=== PATIENT | male | born 1955 | race Caucasian/White ===

== ENCOUNTER 2016-06-12 13:53 | Emergency (ER) | payer OTHER ==
[~2016-06-12] VITALS: Ht 172.7 cm; Wt 101.2 kg
[~2016-06-12 13:53] MED LIST: CEPH500C2 PO; HYDR-4246 PO; LOSA1TAB96 PO
[2016-06-12 13:58] VITALS: Ht 172.7 cm; Wt 101.2 kg
--- OUTSIDE RECORDS SUMMARY | 2016-06-12 13:58 | XMS REPORT | Continuity of Care Document ---
Author Author [facility] Organization [facility] Address Unknown Phone Unavailable Care Team Providers Care Entry Level Machine Operator Name Role Phone JAMEY CHUA MD Primary Care Physician [phone] Insurance Providers Payer Name Policy Number Subscriber Name Relationship [facility] [id number] Jesus Julien 20 Self Problems Medical Problems Problem Onset Date Status Rotator cuff syndrome of left shoulder Unknown Active Rotator cuff syndrome of left shoulder Unknown Active Medications Medication Dose Route Sig Days/Qty Instructions Order Date Discontinued Date Status [Bp Pill] 08/29/08 11/04/08 Discontinued Losartan/Hydrochlorothiazide 1 Tab PO DAILY 10/03/13 Active Hydrocodone/Acetaminophen 1 Tab PO Every 6 Hours PRN PAIN 10/03/13 Active Cyclobenzaprine HCl 1 Tab PO THREE TIMES A DAY 10/03/13 Active Social History Social History Problem Response Recorded Date/Time Smoking Status Never smoker 10/03/2013 1:27pm Hx Substance Use No 10/03/2013 1:27pm Hx Alcohol Use Y OCCASIONAL 10/03/2013 1:27pm Hospital Discharge Instructions No hospital discharge instructions. Plan of Care No plan of care. Functional Status Query Response Date Recorded Physical Hygiene Self October 03, 2013 1:27pm Disabilities Visual October 03, 2013 1:27pm Devices Used Glasses October 03, 2013 1:27pm Dressing Self October 03, 2013 1:27pm Ambulation Self October 03, 2013 1:27pm Diet Self October 03, 2013 1:27pm Mental Status Alert Oriented October 03, 2013 1:27pm Disabilities Visual October 03, 2013 1:27pm Devices Used Glasses October 03, 2013 1:27pm Physical Hygiene Self October 03, 2013 1:27pm Dressing Self October 03, 2013 1:27pm Ambulation Self October 03, 2013 1:27pm Diet Self October 03, 2013 1:27pm Allergies, Adverse Reactions, Alerts Allergen Type Severity Reaction Status Last Updated No Known Drug Allergies Allergy Unknown Active 10/03/13 Immunizations Name Given Type Hx Influenza Vaccination Y 2013 Historical Hx Pneumococcal Vaccination Y 2006 Historical Hx Tetanus, Diptheria, Pertussis Y 06/28/11 Historical Hx Influenza Vaccination Y 2012 Historical Hx Tetanus Diptheria Y 3 YRS Historical Hx Tetanus, Diptheria, Pertussis Y 06/28/11 Historical Vital Signs Acute Vital Signs Vital Response Date/Time Temperature (Fahrenheit) 97.6 deg F (96.8 - 99.1) Temperature (Calculated Celsius) 36.24482 degrees C (36.0 - 37.3) Pulse Rate (adult) 115 bpm (60 - 100) Respiratory Rate 20 breaths/min (10 - 20) O2 Sat by Pulse Oximetry 96 % (90 - 100) Blood Pressure 106/69 mm Hg Height 5 ft 7 in Weight 225 lb Body Mass Index 35.0 kg/m^2 Results Test Source Date Result Interp. Ref. Range Comments Alanine Aminotransferase (ALT/SGPT) July 20, 2007 1:04pm 108 U/L H 21- 72 Albumin July 20, 2007 1:04pm 3.9 G/DL N 3.5-5.0 Albumin/Globulin Ratio July 20, 2007 1:04pm 1.0 RATIO L 1.1-2.2 Alkaline Phosphatase July 20, 2007 1:04pm 91 U/L N 38-126 Anion Gap July 20, 2007 1:04pm 14.1 MEQ/L N 5-15 Anti-Streptolysin O Antibody Screen July 20, 2007 1:04pm Negative - Aspartate Amino Transf (AST/SGOT) July 20, 2007 1:04pm 185 U/L H 14-59 BUN/Creatinine Ratio July 20, 2007 1:04pm 16 RATIO N 6-26 Band Neutrophils # July 20, 2007 1:04pm 2.3 T/MM3 - COMMENT LAB Band Neutrophils % July 20, 2007 1:04pm 13.0 % H 0-6 COMMENT [facility] Basophils # (Auto) July 20, 2007 1:04pm Not Performed 0-0.2 Basophils # (Manual) July 20, 2007 1:04pm 0.0 T/MM3 N 0-0.2 COMMENT [facility] Basophils % (Manual) July 20, 2007 1:04pm 0.0 % N 0-2 COMMENT [facility] Basophils (%) (Auto) July 20, 2007 1:04pm Not Performed 0-2 Blood Urea Nitrogen July 20, 2007 1:04pm 16 MG/DL N 9-20 C-Reactive Protein July 20, 2007 1:04pm 235.3 MG/L H 3-10 Calcium Level July 20, 2007 1:04pm 8.4 MG/DL N 8.4-10.2 Calculated Osmolality July 20, 2007 1:04pm 254 MOSM/KG L 273-286 Carbon Dioxide Level July 20, 2007 1:04pm 27 MEQ/L N 22-30 Chloride Level July 20, 2007 1:04pm 88 MEQ/L L 98-107 Creatinine July 20, 2007 1:04pm 1.0 MG/DL N 0.8-1.5 D-Dimer July 20, 2007 1:04pm > [id number] NG/ML H 68-494 <500 NG/ML FIBRIN DEGRADATION EQUIVALENTS=PRESUMPTIVE NEGATIVE FOR PE OR DVT >500 NG/ML FIBRIN DEGRADATION EQUIVALENTS =ADDITIONAL EVALUATION FOR PE OR DVT RECOMMENDED VALUES ARE DECREASED SHARPLY BY ANTICOAGULANT THERAPY Eosinophils # (Auto) July 20, 2007 1:04pm Not Performed 0-0.5 Eosinophils # (Manual) July 20, 2007 1:04pm 0.0 T/MM3 N 0-0.5 COMMENT LAB Eosinophils % (Manual) July 20, 2007 1:04pm 0.0 % N 0-4 COMMENT LAB Eosinophils (%) (Auto) July 20, 2007 1:04pm Not Performed 0-4 Erythrocyte Sedimentation Rate July 20, 2007 1:04pm 11 MM/HR - Globulin July 20, 2007 1:04pm 3.7 G/DL H 2-3.6 Glucose Level July 20, 2007 1:04pm 158 MG/DL H 74-106 Group A Streptococcus Screen July 20, 2007 12:45pm Negative - Strep culture confirmation to follow Hematocrit July 20, 2007 1:04pm 45.7 % N 41-53 COMMENT LAB Hemoglobin July 20, 2007 1:04pm 16.9 GM/DL N 13.5-17.5 COMMENT LAB Lymphocytes # (Auto) July 20, 2007 1:04pm Not Performed 1-4.8 Lymphocytes # (Manual) July 20, 2007 1:04pm 0.2 T/MM3 L 1-4.8 COMMENT LAB Lymphocytes % (Manual) July 20, 2007 1:04pm 1.0 % L 23-45 COMMENT LAB Lymphocytes (%) (Auto) July 20, 2007 1:04pm Not Performed 23-45 Mean Corpuscular Hemoglobin July 20, 2007 1:04pm 29.2 UUG N 26-34 COMMENT LAB Mean Corpuscular Hemoglobin Concent July 20, 2007 1:04pm 37.0 GM/DL N 31 -37 COMMENT LAB Mean Corpuscular Volume July 20, 2007 1:04pm 79.1 UM3 L 80-100 COMMENT LAB Mean Platelet Volume July 20, 2007 1:04pm 11.5 UM3 H 7.4-10.4 COMMENT LAB Monocytes # (Auto) July 20, 2007 1:04pm Not Performed 0-0.8 Monocytes # (Manual) July 20, 2007 1:04pm 0.7 T/MM3 N 0-0.8 COMMENT LAB Monocytes % (Manual) July 20, 2007 1:04pm 4.0 % N 0-9.0 COMMENT LAB Monocytes (%) (Auto) July 20, 2007 1:04pm Not Performed 0-9.0 Neutrophils # (Auto) July 20, 2007 1:04pm Not Performed 1.8-7.7 Neutrophils # (Manual) July 20, 2007 1:04pm 14.8 T/MM3 H 1.8-7.7 COMMENT LAB Neutrophils % (Manual) July 20, 2007 1:04pm 82.0 % H 33-66 COMMENT LAB Neutrophils (%) (Auto) July 20, 2007 1:04pm Not Performed 33-66 Platelet Count July 20, 2007 1:04pm 85 T/MM3 L 130-400 COMMENT LAB Potassium Level July 20, 2007 1:04pm 3.0 MEQ/L L 3.6-5 RDW Standard Deviation July 20, 2007 1:04pm 36.7 FL L 36.9-50.2 COMMENT LAB Rapid Plasma Reagin July 20, 2007 1:04pm Nonreactive - Red Blood Count July 20, 2007 1:04pm 5.78 M/MM3 N 4.50-5.90 COMMENT LAB Sodium Level July 20, 2007 1:04pm 129 MEQ/L L 134-144 Total Bilirubin July 20, 2007 1:04pm 1.0 MG/DL N 0.2-1.3 Total Protein July 20, 2007 1:04pm 7.6 G/DL N 6.3-8.2 Troponin I July 20, 2007 1:04pm 0.068 ng/ml N 0-0.12 Urine Bacteria July 20, 2007 1:52pm 1+ - Has specimen been collected/ obtained? Y Urine Bilirubin July 20, 2007 1:52pm Negative - Has specimen been collected/obtained? Y Urine Blood July 20, 2007 1:52pm 4+ - Has specimen been collected/ obtained? Y Urine Collection Type July 20, 2007 1:52pm Voided - Has specimen been collected/obtained? Y Urine Color July 20, 2007 1:52pm Yellow - Has specimen been collected /obtained? Y Urine Glucose (UA) July 20, 2007 1:52pm Negative - Has specimen been collected/obtained? Y Urine Ketones July 20, 2007 1:52pm Negative - Has specimen been collected/obtained? Y Urine Leukocyte Esterase July 20, 2007 1:52pm Negative - Has specimen been collected/obtained? Y Urine Nitrite July 20, 2007 1:52pm Negative - Has specimen been collected/obtained? Y Urine Protein July 20, 2007 1:52pm 1+ - Has specimen been collected/ obtained? Y Urine RBC July 20, 2007 1:52pm 3-5 /HPF - Has specimen been collected /obtained? Y Urine Specific [place] July 20, 2007 1:52pm 1.010 - Has specimen been collected/obtained? Y Urine Squamous Epithelial Cells July 20, 2007 1:52pm Few - Has specimen been collected/obtained? Y Urine Turbidity July 20, 2007 1:52pm Clear - Has specimen been collected/obtained? Y Urine Urobilinogen July 20, 2007 1:52pm 1 EU/DL - Has specimen been collected/obtained? Y Urine WBC July 20, 2007 1:52pm 3-5 /HPF - Has specimen been collected /obtained? Y Urine pH July 20, 2007 1:52pm 9.0 - Has specimen been collected/ obtained? Y White Blood Count July 20, 2007 1:04pm 18.0 T/MM3 H 4.5-11.0 COMMENT LAB [place] Antibody July 20, 2007 8:00am Send out - EKG July 20, 2007 12:45pm Complete - Rickettsia species Antibody July 20, 2007 12:45pm Send out - HIV (1&2) Antibody Rapid July 20, 2007 1:04pm Negative - Blood Culture Blood July 20, 2007 1:05pm NO GROWTH AFTER 5 DAYS Group A Streptococcus Culture Throat July 20, 2007 1:16pm Procedures No known history of procedures. Encounters Encounter Location Date/Time Registered Emergency Room [facility] 10/03/13 1:00pm Recent Diagnosis
--- OUTSIDE RECORDS SUMMARY | 2016-06-12 13:58 | XMS REPORT | Continuity of Care Document ---
Author Author Mallorie Paredes RN Ambulatory Address [address] [place] [address] Phone Unavailable Care Team Providers Care Rn Hedis Name Role Phone Bernardo Peres PP Unavailable Payers Payer name Insurance type Covered democrat ID Authorization(s) Unknown Problems Condition Effective Dates (start - stop) Clinical Status Rotator cuff (capsule) sprain - *Acute Rotator cuff strain - *Acute Rotator cuff (capsule) sprain and strain - *Acute Hypertension, Unspecified - *Chronic Hypertension, Unspecified - Chronic Hypertension, Unspecified - *Chronic Other and unspecified hyperlipidemia - *Chronic Obesity - *Chronic Family history of coronary artery disease - *Chronic Medication side effect - *Symptomatic Obesity - Improved Hypertension, Unspecified - *Chronic Other and unspecified hyperlipidemia - *Chronic Cellulitis, finger - *Acute Constipation, unspecified - Chronic Hemorrhoids - Chronic Hypertension, Unspecified - *Chronic Erectile Dysfunction - *Chronic Atypical nevi - *Worse Other and unspecified hyperlipidemia - *Chronic Benign neoplasm of skin, site unspecified - Asymptomatic Family History Family Member Diagnosis Age At Onset Status Mother (Unknown) Diabetes Yes Father (Unknown) Hypertension Yes Mother (Unknown) Congestive heart failure Yes Father (Unknown) Hyperlipidemia Yes Maternal grandmother (Unknown) Cancer - colon Yes Mother (Unknown) CAD Yes Mother (Unknown) Obesity Yes Mother (Unknown) Hypertension Yes Mother (Unknown) Hyperlipidemia Yes Social History Social History Element Description Quantity alcohol Allergies, Adverse Reactions, Alerts Substance Reaction Severity Status LISINOPRIL cough mild to moderate CAFFEINE Unknown ASPIRIN Unknown Medications Medication Instructions Dosage Effective Dates (start - stop) Status losartan 100 mg-hydrochlorothiazide 25 mg tablet take 1 tablet by oral route every day 0 - Active Immunizations Vaccine Date Status Comments Flu (split) (3 yrs or older) completed flu (split) (3 yrs or older) completed - Completed reason: previously given Tdap (Boostrix ) completed - Completed reason: previously given pneumo (2 yrs or older) (PPV23) completed - Completed reason: previously given Results Test Name Date and Time Measure Units Reference Range Abnormal Flag Comments Unknown Vital Signs Date / Time: Height Weight Pulse Rate Blood Pressure Temperature /13:12:00 67.00 in 232.00 lbs 92 /min 144/96 mm[Hg] 98.2 F Procedures Procedure Date Unknown Encounters Encounter Location Date Patient Visit [facility] Patient Visit [facility] Patient Visit [facility] Patient Visit [facility] Patient Visit [facility] Patient Visit [facility] Patient Visit [facility] Patient Visit [facility] Patient Visit [facility] Advance Directives Directive Effective Date Unknown
--- OUTSIDE RECORDS SUMMARY | 2016-06-12 13:58 | XMS REPORT | Referral Summary ---
Author Author [facility] Organization [facility] Address Unknown Phone Unavailable Care Team Providers Care Lining Feller Blindstitch Name Role Phone Claude Hudson Primary Care Physician [phone] Encounter VC Date(s): 08/08/14 - 08/08/14 [facility], [address] [place] [id number]- Discharge Disposition: 01-Home or Self Care Attending Physician: Benjamin Li MD Admitting Physician: Benjamin Li MD Vital Signs Most recent to 1 oldest [Reference Range]: Blood Pressure 110/80 mmHg [90-140/60-90 mmHg] (08/08/14 3:12 PM) Problem List Condition Effective Dates Status Health Status Informant Constipation Active (disorder)(Confirmed ) Essential Active hypertension (disorder)(Confirmed ) Hemorrhoids without Active complication (disorder)(Confirmed ) hypertension(Confirm Resolved ed) Impotence of organic Active origin (disorder)(Confirmed ) Obesity(Confirmed) Active patient Rotator cuff Active tendinitis(Confirmed ) Snoring(Confirmed) Active tonsillectomy(Confir Resolved med) Allergies, Adverse Reactions, Alerts Substance Reaction Severity Status lisinopril cough Moderate Active Medications Aleve 220 mg, Oral, as needed for arthritis, 0 Refill(s) Start Date: 08/08/14 Status: Ordered losartan-hydrochlorothiazide 100 mg-25 mg oral tablet 1 tabs, Oral, Daily, X 90 days, # 90 tabs, 3 Refill(s), Pharmacy: [facility] #[id number] Start Date: 11/08/14 Stop Date: 11/03/15 Status: Ordered Results Hematology Most recent to 1 oldest [Reference Range]: WBC [4.8-10.8 8.2 10*3/uL 10*3/uL] (08/08/14 4:03 PM) RBC [4.60-6.20 4.92 10*6/uL 10*6/uL] (08/08/14 4:03 PM) Hgb [14.0-18.0 14.2 gm/dL gm/dL] (08/08/14 4:03 PM) Hct [42.0-52.0 %] 41.8 % *LOW* (08/08/14 4:03 PM) MCV [82.0-99.0 fL] 85.0 fL (08/08/14 4:03 PM) MCH [27.0-32.0 pg] 28.9 pg (08/08/14 4:03 PM) MCHC [32.0-36.0 34.0 gm/dL gm/dL] (08/08/14 4:03 PM) RDW [11.5-14.5 %] 14.1 % (08/08/14 4:03 PM) Platelet [150-400 338 10*3/uL 10*3/uL] (08/08/14 4:03 PM) MPV [8.8-14.8 fL] 10.7 fL (08/08/14 4:03 PM) Neutrophils [51-75 70 % %] (08/08/14 4:03 PM) Lymphocytes [20-46 19 % %] *LOW* (08/08/14 4:03 PM) Monocytes [4-11 %] 10 % (08/08/14 4:03 PM) Eosinophils [0-4 %] 1 % (08/08/14 4:03 PM) Basophils [0-2 %] 0 % (08/08/14 4:03 PM) Neutro Absolute 5.70 10*3 [1.90-7.00 10*3] (08/08/14 4:03 PM) Lymph Absolute 1.52 10*3 [0.80-3.30 10*3] (08/08/14 4:03 PM) [place] Absolute 0.84 10*3 [0.30-1.00 10*3] (08/08/14 4:03 PM) Eos Absolute 0.10 10*3 [0.00-0.50 10*3] (08/08/14 4:03 PM) Baso Absolute 0.03 10*3 [0.00-0.20 10*3] (08/08/14 4:03 PM) Chemistry Most recent to 1 oldest [Reference Range]: Sodium Lvl [135-144 137 mEq/L mEq/L] (08/08/14 4:03 PM) Potassium Lvl 3.8 mEq/L [3.5-5.2 mEq/L] (08/08/14 4:03 PM) Chloride [99-111 105 mEq/L mEq/L] (08/08/14 4:03 PM) CO2 [23-31 mEq/L] 24 mEq/L (08/08/14 4:03 PM) AGAP [3-20] 8 (08/08/14 4:03 PM) BUN [8-26 mg/dL] 18 mg/dL (08/08/14 4:03 PM) Glucose Lvl [70-99 94 mg/dL mg/dL] (08/08/14 4:03 PM) Creatinine Lvl 0.75 mg/dL [0.72-1.25 mg/dL] (08/08/14 4:03 PM) eGFR [>60 mL/min] >60 mL/min 1 (08/08/14 4:03 PM) Calcium Lvl 9.6 mg/dL [8.9-10.5 mg/dL] (08/08/14 4:03 PM) Albumin Lvl [3.5-5.0 4.0 gm/dL gm/dL] (08/08/14 4:03 PM) Total Protein 6.7 gm/dL [6.4-8.3 gm/dL] (08/08/14 4:03 PM) Globulin [1.8-4.0 2.7 gm/dL gm/dL] (08/08/14 4:03 PM) ALT [0-55 U/L] 30 U/L (08/08/14 4:03 PM) AST [5-34 U/L] 22 U/L (08/08/14 4:03 PM) Alk Phos [40-150 85 U/L U/L] (08/08/14 4:03 PM) Bili Total [0.2-1.2 0.4 mg/dL mg/dL] (08/08/14 4:03 PM) PSA (wihout Reflex 0.6 ng/mL 2 Free) [0.0-3.5 (08/08/14 4:03 PM) ng/mL] Chol [0-199 mg/dL] 191 mg/dL (08/08/14 4:03 PM) Trig [0-149 mg/dL] 90 mg/dL (08/08/14 4:03 PM) HDL [40-84 mg/dL] 51 mg/dL (08/08/14 4:03 PM) LDL [0-130 mg/dL] 122 mg/dL (08/08/14 4:03 PM) VLDL Cholesterol 18 mg/dL [0-28 mg/dL] (08/08/14 4:03 PM) Cardiac Risk 3.7 [0.0-5.7] (08/08/14 4:03 PM) 1Result Comment: Multiply eGFR results by 1.21 for race. 2Result Comment: AUA PSA Best Practice Guidelines: Age-Adjusted PSA Values by Ethnic Group Age Range Asians - Caucasians Americans 40-49 0-2.0 0-2.0 0-2.5 50-59 0-3.0 0-4.0 0-3.5 60-69 0-4.0 0-4.5 0-4.5 70-79 0-5.0 0-5.5 0-6.5 Urinalysis Most recent to 1 oldest [Reference Range]: UA Color Yellow (08/08/14 4:15 PM) UA Appear Clear (08/08/14 4:15 PM) UA pH [5.0-8.0] 6.0 (08/08/14 4:15 PM) UA Leuk Est Negative [Negative] (08/08/14 4:15 PM) UA Nitrite Negative [Negative] (08/08/14 4:15 PM) UA Protein Negative [Negative] (08/08/14 4:15 PM) UA Glucose Negative [Negative] (08/08/14 4:15 PM) UA Ketones Negative [Negative] (08/08/14 4:15 PM) UA Urobilinogen 1.0 mg/dL [<1.0 mg/dL] (08/08/14 4:15 PM) UA Bili [Negative] Negative (08/08/14 4:15 PM) UA Blood [Negative] Negative (08/08/14 4:15 PM) UA Spec Grav 1.025 [1.003-1.030] (08/08/14 4:15 PM) Type Voided (08/08/14 4:15 PM) Immunizations Vaccine Date Refusal Reason influenza virus vaccine, live 12/07/12 influenza virus vaccine, live 12/05/10 pneumococcal 23-polyvalent vaccine 07/11/10 zoster vaccine live 11/10/12 Procedures Procedure Date Related Diagnosis Body Site Collection of venous blood by venipuncture 08/08/14 Social History Social History Type Response Smoking Status Never smoker Assessment and Plan Extracted from: Title: Ambulatory Patient Education Author: Benjamin Li MD Date: Family Medicine Arterial Hypertension Arterial hypertension (high blood pressure ) is a condition of elevated pressure in your blood vessels. Hypertension over a long period of time is a risk factor for strokes, heart attacks, and heart failure. It is also the leading cause of kidney (renal ) failure. CAUSES In Adults -- Over 90% of all hypertension has no known cause. This is called essential or primary hypertension. In the other 10% of people with hypertension, the increase in blood pressure is caused by another disorder. This is called secondary hypertension . Important causes of secondary hypertension are: Heavy alcohol use. Obstructive sleep apnea. Hyperaldosterosim (Conn's syndrome). Steroid use. Chronic kidney failure. Hyperparathyroidism. Medications. Renal artery stenosis. Pheochromocytoma. Pepper's disease. Coarctation of the aorta. Scleroderma renal crisis. Licorice (in excessive amounts). Drugs (cocaine, methamphetamine). Your caregiver can explain any items above that apply to you. In Children -- Secondary hypertension is more common and should always be considered. -- Few women of childbearing age have high blood pressure. However, up to 10% of them develop hypertension of . Generally, this will not harm the woman. It may be a sign of 3 complications of : preeclampsia, HELLP syndrome, and eclampsia. Follow up and control with medication is necessary. SYMPTOMS This condition normally does not produce any noticeable symptoms. It is usually found during a routine exam. Malignant hypertension is a late problem of high blood pressure. It may have the following symptoms: Headaches. Blurred vision. End-organ damage (this means your kidneys, heart, lungs, and other organs are being damaged). Stressful situations can increase the blood pressure. If a person with normal blood pressure has their blood pressure go up while being seen by their caregiver, this is often termed "white coat hypertension." Its importance is not known. It may be related with eventually developing hypertension or complications of hypertension. Hypertension is often confused with mental tension, stress, and anxiety. DIAGNOSIS The diagnosis is made by 3 separate blood pressure measurements. They are taken at least 1 week apart from each other. If there is organ damage from hypertension, the diagnosis may be made without repeat measurements. Hypertension is usually identified by having blood pressure readings: Above 140/90 mmHg measured in both arms, at 3 separate times, over a couple weeks. Over 130/80 mmHg should be considered a risk factor and may require treatment in patients with diabetes. Blood pressure readings over 120/80 mmHg are called "pre-hypertension" even in non-diabetic patients. To get a true blood pressure measurement, use the following guidelines. Be aware of the factors that can alter blood pressure readings. Take measurements at least 1 hour after caffeine. Take measurements 30 minutes after smoking and without any stress. This is another reason to quit smoking it raises your blood pressure. Use a proper cuff size. Ask your caregiver if you are not sure about your cuff size. Most home blood pressure cuffs are automatic. They will measure systolic and diastolic pressures. The systolic pressure is the pressure reading at the start of sounds. Diastolic pressure is the pressure at which the sounds disappear. If you are elderly, measure pressures in multiple postures. Try sitting, lying or standing. Sit at rest for a minimum of 5 minutes before taking measurements. You should not be on any medications like decongestants. These are found in many cold medications. Record your blood pressure readings and review them with your caregiver. If you have hypertension: Your caregiver may do tests to be sure you do not have secondary hypertension (see "causes" above). Your caregiver may also look for signs of metabolic syndrome. This is also called Syndrome X or Insulin Resistance Syndrome. You may have this syndrome if you have type 2 diabetes, abdominal obesity, and abnormal blood lipids in addition to hypertension. Your caregiver will take your medical and family history and perform a physical exam. Diagnostic tests may include blood tests (for glucose, cholesterol, potassium, and kidney function), a urinalysis, or an EKG. Other tests may also be necessary depending on your condition. PREVENTION There are important lifestyle issues that you can adopt to reduce your chance of developing hypertension: Maintain a normal weight. Limit the amount of salt (sodium ) in your diet. Exercise often. Limit alcohol intake. Get enough potassium in your diet. Discuss specific advice with your caregiver. Follow a DASH diet (dietary approaches to stop hypertension). This diet is rich in fruits, vegetables, and low-fat dairy products, and avoids certain fats. PROGNOSIS Essential hypertension cannot be cured. Lifestyle changes and medical treatment can lower blood pressure and reduce complications. The prognosis of secondary hypertension depends on the underlying cause. Many people whose hypertension is controlled with medicine or lifestyle changes can live a normal, healthy life. RISKS AND COMPLICATIONS While high blood pressure alone is not an illness, it often requires treatment due to its short- and long-term effects on many organs. Hypertension increases your risk for: CVAs or strokes (cerebrovascular accident ). Heart failure due to chronically high blood pressure (hypertensive cardiomyopathy ). Heart attack (myocardial infarction ). Damage to the retina (hypertensive retinopathy ). Kidney failure (hypertensive nephropathy ). Your caregiver can explain list items above that apply to you. Treatment of hypertension can significantly reduce the risk of complications. TREATMENT For overweight patients, weight loss and regular exercise are recommended. Physical fitness lowers blood pressure. Mild hypertension is usually treated with diet and exercise. A diet rich in fruits and vegetables, fat-free dairy products, and foods low in fat and salt (sodium ) can help lower blood pressure. Decreasing salt intake decreases blood pressure in a 1/3 of people. Stop smoking if you are a smoker. The steps above are highly effective in reducing blood pressure. While these actions are easy to suggest, they are difficult to achieve. Most patients with moderate or severe hypertension end up requiring medications to bring their blood pressure down to a normal level. There are several classes of medications for treatment. Blood pressure pills (antihypertensives ) will lower blood pressure by their different actions. Lowering the blood pressure by 10 mmHg may decrease the risk of complications by as much as 25%. The goal of treatment is effective blood pressure control. This will reduce your risk for complications. Your caregiver will help you determine the best treatment for you according to your lifestyle. What is excellent treatment for one person, may not be for you. HOME CARE INSTRUCTIONS Do not smoke. Follow the lifestyle changes outlined in the "Prevention" section. If you are on medications, follow the directions carefully. Blood pressure medications must be taken as prescribed. Skipping doses reduces their benefit. It also puts you at risk for problems. Follow up with your caregiver, as directed. If you are asked to monitor your blood pressure at home, follow the guidelines in the "Diagnosis" section above. SEEK MEDICAL CARE IF: You think you are having medication side effects. You have recurrent headaches or lightheadedness. You have swelling in your ankles. You have trouble with your vision. SEEK IMMEDIATE MEDICAL CARE IF: You have sudden onset of chest pain or pressure, difficulty breathing, or other symptoms of a heart attack. You have a severe headache. You have symptoms of a stroke (such as sudden weakness, difficulty speaking , difficulty walking). MAKE SURE YOU: Understand these instructions. Will watch your condition. Will get help right away if you are not doing well or get worse. Document Released: 01/27/2006 Document Revised: 04/20/2012 Document Reviewed: [facility] Patient Information 2014 [employer]. No follow up information was provided. Extracted from: Title: Office Visit Note Author: Benjamin Li MD Date: 08/08/14 Assessment/Plan Essential hypertension (disorder) This issue is stable and appropriate refills , lab, and f/u have been discussed. Hyperlipidemia This issue is stable and appropriate refills, lab, and f/u have been discussed. Lab pending.PSA pending. Impotence of organic origin (disorder) This issue is stable and appropriate refills, lab, and f/u have been discussed. Obesity Diet and exercise. Snoring Consider sleep apnea work up when willing.
--- OUTSIDE RECORDS SUMMARY | 2016-06-12 13:58 | XMS REPORT | Referral Summary ---
Author Author [facility] Organization [facility] Address Unknown Phone Unavailable Care Team Providers Care Inventory Specialist Manager Name Role Phone Claude Hudson Primary Care Physician [phone] Encounter VC Date(s): 11/08/14 - 11/08/14 [facility], [address] [place] [address]- Discharge Disposition: 01-Home or Self Care Attending Physician: Arsen Hudson MD Admitting Physician: Arsen Hudson MD Vital Signs Most recent to 1 oldest [Reference Range]: Peripheral Pulse 104 bpm Rate [60-100 bpm] *HI* (11/08/14 3:20 PM) Blood Pressure 124/72 mmHg [90-140/60-90 mmHg] (11/08/14 3:20 PM) Problem List Condition Effective Dates Status Health Status Informant Constipation Active (disorder)(Confirmed ) Essential Active hypertension (disorder)(Confirmed ) Fatigue(Confirmed) Active Hemorrhoids without Active complication (disorder)(Confirmed ) hypertension(Confirm [...] days, # 90 tabs, 3 Refill(s), Pharmacy: [facility] #[id number] Start Date: 11/08/14 Stop Date: 11/03/15 Status: Ordered Results No data available for this section Immunizations Vaccine Date Refusal Reason influenza virus vaccine, live 12/07/12 influenza virus vaccine, live 12/05/10 pneumococcal 23-polyvalent vaccine 07/11/10 zoster vaccine live 11/10/12 Procedures No data available for this section Social History Social History Type Response Smoking Status Never smoker Assessment and Plan Extracted from: Title: Ambulatory Patient Education Author: Arsen Hudson MD Date: Family Medicine DASH Eating Plan DASH stands for "Dietary Approaches to Stop Hypertension." The DASH eating plan is a healthy eating plan that has been shown to reduce high blood pressure ( hypertension). Additional health benefits may include reducing the risk of type 2 diabetes mellitus, heart disease, and stroke. The DASH eating plan may also help with weight loss. WHAT DO I NEED TO KNOW ABOUT THE DASH EATING PLAN? For the DASH eating plan, you will follow these general guidelines: Choose foods with a percent daily value for sodium of less than 5% (as listed on the food label). Use salt-free seasonings or herbs instead of table salt or sea salt. Check with your health care provider or pharmacist before using salt substitutes. Eat lower-sodium products, often labeled as "lower sodium" or "no salt added." Eat fresh foods. Eat more vegetables, fruits, and low-fat dairy products. Choose whole grains. Look for the word "whole" as the first word in the ingredient list. Choose fish and skinless chicken or turkey more often than red meat. Limit fish, poultry, and meat to 6 oz (170 g) each day. Limit sweets, desserts, sugars, and sugary drinks. Choose heart-healthy fats. Limit cheese to 1 oz (28 g) per day. Eat more home-cooked food and less restaurant, buffet, and fast food. Limit fried foods. Cook foods using methods other than frying. Limit canned vegetables. If you do use them, rinse them well to decrease the sodium. When eating at a restaurant, ask that your food be prepared with less salt , or no salt if possible. WHAT FOODS CAN I EAT? Seek help from a dietitian for individual calorie needs. Grains Whole grain or whole wheat bread. Brown rice. Whole grain or whole wheat pasta. Quinoa, bulgur, and whole grain cereals. Low-sodium cereals. [place] or whole wheat flour tortillas. Whole grain cornbread. Whole grain crackers. Low-sodium crackers. Vegetables Fresh or frozen vegetables (raw, steamed, roasted, or grilled). Low-sodium or reduced-sodium tomato and vegetable juices. Low-sodium or reduced-sodium tomato sauce and paste. Low-sodium or reduced-sodium canned vegetables. Fruits All fresh, canned (in natural juice), or frozen fruits. Meat and Other Protein Products Ground beef (85% or leaner), grass-fed beef, or beef trimmed of fat. Skinless chicken or turkey. Ground chicken or turkey. Pork trimmed of fat. All fish and seafood. Eggs. Dried beans, peas, or lentils. Unsalted nuts and seeds. Unsalted canned beans. Dairy Low-fat dairy products, such as skim or 1% milk, 2% or reduced-fat cheeses, low- fat ricotta or cottage cheese, or plain low-fat yogurt. Low-sodium or reduced- sodium cheeses. Fats and Oils Tub margarines without trans fats. Light or reduced-fat mayonnaise and salad dressings (reduced sodium). Avocado. Safflower, olive, or canola oils. Natural peanut or almond butter. Other Unsalted popcorn and pretzels. The items listed above may not be a complete list of recommended foods or beverages. Contact your dietitian for more options. WHAT FOODS ARE NOT RECOMMENDED? Grains White bread. White pasta. White rice. Refined cornbread. Bagels and croissants. Crackers that contain trans fat. Vegetables Creamed or fried vegetables. Vegetables in a cheese sauce. Regular canned vegetables. Regular canned tomato sauce and paste. Regular tomato and vegetable juices. Fruits Dried fruits. Canned fruit in light or heavy syrup. Fruit juice. Meat and Other Protein Products Fatty cuts of meat. Ribs, chicken wings, acosta, sausage, bologna, salami, chitterlings, fatback, hot dogs, bratwurst, and packaged luncheon meats. Salted nuts and seeds. Canned beans with salt. Dairy Whole or 2% milk, cream, [id number], and cream cheese. Whole-fat or sweetened yogurt. Full-fat cheeses or blue cheese. Nondairy creamers and whipped toppings. Processed cheese, cheese spreads, or cheese curds. Condiments Onion and garlic salt, seasoned salt, table salt, and sea salt. Canned and packaged gravies. Worcestershire sauce. Tartar sauce. Barbecue sauce. Teriyaki sauce. Soy sauce, including reduced sodium. Steak sauce. Fish sauce. Oyster sauce. Cocktail sauce. Horseradish. Ketchup and mustard. Meat flavorings and tenderizers. Bouillon cubes. Hot sauce. Tabasco sauce. Marinades. Taco seasonings. Relishes. Fats and Oils Butter, stick margarine, lard, shortening, ghee, and acosta fat. Coconut, palm kernel, or palm oils. Regular salad dressings. Other Pickles and olives. Salted popcorn and pretzels. The items listed above may not be a complete list of foods and beverages to avoid. Contact your dietitian for more information. WHERE CAN I FIND MORE INFORMATION? National Heart, Lung, and Blood [place]: www.nhlbi.nih.gov/health/health- topics/topics/dash/ Document Released: 01/16/2012 Document Revised: 06/13/2014 Document Reviewed: ExitCare Patient Information 2015 [employer]. This information is not intended to replace advice given to you by your health care provider. Make sure you discuss any questions you have with your health care provider. Hypertension Hypertension, commonly called high blood pressure, is when the force of blood pumping through your arteries is too strong. Your arteries are the blood vessels that carry blood from your heart throughout your body. A blood pressure reading consists of a higher number over a lower number, such as 110/72. The higher number (systolic) is the pressure inside your arteries when your heart pumps. The lower number (diastolic) is the pressure inside your arteries when your heart relaxes. Ideally you want your blood pressure below 120/80. Hypertension forces your heart to work harder to pump blood. Your arteries may become narrow or stiff. Having hypertension puts you at risk for heart disease, stroke, and other problems. RISK FACTORS Some risk factors for high blood pressure are controllable. Others are not. Risk factors you cannot control include: Race. You may be at higher risk if you are . Age. Risk increases with age. Gender. Men are at higher risk than women before age 45 years. After age 65 , women are at higher risk than men. Risk factors you can control include: Not getting enough exercise or physical activity. Being overweight. Getting too much fat, sugar, calories, or salt in your diet. Drinking too much alcohol. SIGNS AND SYMPTOMS Hypertension does not usually cause signs or symptoms. Extremely high blood pressure (hypertensive crisis) may cause headache, anxiety, shortness of breath , and nosebleed. DIAGNOSIS To check if you have hypertension, your health care provider will measure your blood pressure while you are seated, with your arm held at the level of your heart. It should be measured at least twice using the same arm. Certain conditions can cause a difference in blood pressure between your right and left arms. A blood pressure reading that is higher than normal on one occasion does not mean that you need treatment. If one blood pressure reading is high, ask your health care provider about having it checked again. TREATMENT Treating high blood pressure includes making lifestyle changes and possibly taking medicine. Living a healthy lifestyle can help lower high blood pressure. You may need to change some of your habits. Lifestyle changes may include: Following the DASH diet. This diet is high in fruits, vegetables, and whole grains. It is low in salt, red meat, and added sugars. Getting at least 2 hours of brisk physical activity every week. Losing weight if necessary. Not smoking. Limiting alcoholic beverages. Learning ways to reduce stress. If lifestyle changes are not enough to get your blood pressure under control, your health care provider may prescribe medicine. You may need to take more than one. Work closely with your health care provider to understand the risks and benefits. HOME CARE INSTRUCTIONS Have your blood pressure rechecked as directed by your health care provider. Take medicines only as directed by your health care provider. Follow the directions carefully. Blood pressure medicines must be taken as prescribed. The medicine does not work as well when you skip doses. Skipping doses also puts you at risk for problems. Do not smoke. Monitor your blood pressure at home as directed by your health care provider. SEEK MEDICAL CARE IF: You think you are having a reaction to medicines taken. You have recurrent headaches or feel dizzy. You have swelling in your ankles. You have trouble with your vision. SEEK IMMEDIATE MEDICAL CARE IF: You develop a severe headache or confusion. You have unusual weakness, numbness, or feel faint. You have severe chest or abdominal pain. You vomit repeatedly. You have trouble breathing. MAKE SURE YOU: Understand these instructions. Will watch your condition. Will get help right away if you are not doing well or get worse. Document Released: 01/27/2006 Document Revised: 06/13/2014 Document Reviewed: ExitCare Patient Information 2015 [place], [facility]. This information is not intended to replace advice given to you by your health care provider. Make sure you discuss any questions you have with your health care provider. No follow up information was provided. Extracted from: Title: Office Visit Note Author: Arsen Hudson MD Date: 11/08/14 Assessment/Plan Essential hypertension (disorder) Continue with the current medications. Ordered: Office Visit Level 4 Est 80513 Snoring Will set patient up for a sleep study Ordered: Office Visit Level 4 Est 46827 Orders: losartan-hydrochlorothiazide, 1 tabs, Oral, Daily, X 90 days, # 90 tabs, 3 Refill(s), Pharmacy: [facility] #[id number]
--- OUTSIDE RECORDS SUMMARY | 2016-06-12 13:58 | XMS REPORT | Continuity of Care Document ---
Author Author Ja BENAVIDES, Bernardo HORAN Ambulatory Address [address] [place] [address] Nela Rodrigues [facility] [place] [address] Phone Care Team Providers Care Metallurgical Engineering Technician Name Role Phone Bernardo Peres PP Unavailable Payers Payer name Insurance type Covered constitution party ID Authorization(s) Unknown Problems Condition Effective Dates (start - stop) Clinical Status Cellulitis, finger - *Acute Rotator cuff (capsule) sprain and strain - *Acute Hypertension, Unspecified - *Chronic Hypertension, Unspecified - Chronic Hypertension, Unspecified - *Chronic Other and unspecified hyperlipidemia - *Chronic Obesity - *Chronic Family history of coronary artery disease - *Chronic Rotator cuff (capsule) sprain - *Acute Rotator cuff strain - *Acute Medication side effect - *Symptomatic Obesity - Improved Hypertension, Unspecified - *Chronic Other and unspecified hyperlipidemia - *Chronic Constipation, unspecified - Chronic Hemorrhoids - Chronic [...] Dosage Effective Dates (start - stop) Status Keflex 500 mg capsule take 1 capsule (500MG) by oral route every 8 hours for 10 days 500 MG - No Longer Active losartan 100 mg-hydrochlorothiazide 25 mg tablet take [...] Height Weight Pulse Rate Blood Pressure Temperature /15:28:00 67.00 in 230.00 lbs 88 /min 110/72 mm[Hg] 98.2 F Procedures Procedure Date Unknown Encounters Encounter Location Date Patient Visit [facility] Patient Visit [facility] Patient Visit [facility] Patient Visit [facility] Patient Visit [facility] Patient Visit [facility] Patient Visit [facility] Patient Visit [facility] Patient Visit [facility] Advance Directives Directive Effective Date Unknown
--- OUTSIDE RECORDS SUMMARY | 2016-06-12 13:59 | XMS REPORT | Referral Summary ---
Author Author [facility] [employer] Organization [facility] [place] Address Unknown Phone Unavailable Care Team Providers Care Buffer Copper Name Role Phone Claude Hudson Primary Care Physician [phone] Encounter VC Date(s): 07/06/15 - 07/06/15 [facility] [place] [address] [place] [address] Discharge Disposition: 01-Home or Self Care Attending Physician: Tavares Fernandes MD Admitting Physician: Tavares Fernandes MD Vital Signs Most recent to 1 oldest [Reference Range]: Peripheral Pulse 87 bpm Rate [60-100 bpm] (07/06/15 4:13 PM) Blood Pressure 144/92 mmHg [90-140/60-90 mmHg] *HI* (07/06/15 4:13 PM) SpO2 94 % (07/06/15 4:13 PM) Problem List Condition Effective Dates Status Health Status Informant Constipation Active (disorder)(Confirmed ) Essential Active hypertension (disorder)(Confirmed ) Fatigue(Confirmed) Active Hemorrhoids without Active complication (disorder)(Confirmed ) Hyperlipidemia(Confi Active rmed) hypertension(Confirm Resolved ed) Impotence of organic Active origin (disorder)(Confirmed ) Obesity(Confirmed) Active patient [place] 07/2007 Active spotted fever(Confirmed) Rotator cuff Active tendinitis(Confirmed ) Snoring(Confirmed) Active tonsillectomy(Confir Resolved med) Chicken Active pox(Confirmed) Allergies, Adverse Reactions, Alerts Substance Reaction Severity Status lisinopril cough Moderate Active Medications Aleve 220 mg, Oral, as needed for arthritis, 0 Refill(s) Start Date: 08/08/14 Status: Ordered losartan-hydrochlorothiazide 100 mg-25 mg oral tablet 1 tabs, Oral, Daily, X 90 days, # 90 tabs, 3 Refill(s), Pharmacy: [facility] #[id number] Start Date: 11/08/14 Stop Date: 11/03/15 Status: Ordered Results No data available for this section Immunizations Vaccine Date Refusal Reason tetanus/diphth/pertuss (Tdap) adult/adol 10/03/08 influenza virus vaccine, live 12/07/12 influenza virus vaccine, live 12/05/10 pneumococcal 23-polyvalent vaccine 07/11/10 pneumococcal 23-polyvalent vaccine 10/03/08 zoster vaccine live 11/10/12 Procedures Procedure Date Related Diagnosis Body Site Colonoscopy1 11/07/08 Tonsillectomy 1with mild sigmoid diverticulosis. Plan repeat colonoscopy in 10 years (2018) Social History Social History Type Response Smoking Status Never smoker Assessment and Plan Extracted from: Title: Patient to Stop and Schedule Author: Hannah Rogers Date: FU after CPAP SETUP Please have patient stop and set up fu visit with Dr Soler after CPAP Set up
--- OUTSIDE RECORDS SUMMARY | 2016-06-12 13:59 | XMS REPORT | Referral Summary ---
Author Author [facility] Organization [facility] Address Unknown Phone Unavailable Care Team Providers Care Genetic Engineer Name Role Phone Claude Hudson Primary Care Physician [phone] Encounter VC Date(s): 11/08/14 - 11/08/14 [facility], [address] [place] [address]- Discharge Disposition: 01-Home or Self Care Attending [...] # 90 tabs, 3 Refill(s), Pharmacy: [facility] #[id number] Start Date: 11/08/14 Stop Date: 11/03/15 Status: [...] bulgur, and whole grain cereals. Low-sodium cereals. [place] or whole wheat flour tortillas. Whole grain [...] salt. Dairy Whole or 2% milk, cream, [id number], and cream cheese. Whole-fat or sweetened yogurt. [...] MORE INFORMATION? National Heart, Lung, and Blood [place]: www.nhlbi.nih.gov/health/health- topics/topics/dash/ Document Released: 01/16/2012 Document Revised: 06/13/2014 Document Reviewed: ExitCare Patient Information 2015 [employer]. This information is not intended to replace [...] Released: 01/27/2006 Document Revised: 06/13/2014 Document Reviewed: [facility] Patient Information 2015 [employer]. This information is not intended to replace advice given to you by your health care provider. Make sure you discuss any questions you have with your health care provider. No follow up information was provided. Extracted from: Title: Office Visit Note Author: Arsen Hudson MD Date: 11/08/14 Assessment/Plan Essential hypertension (disorder) Continue with the current medications. Ordered: Office Visit Level 4 Est 43853 Snoring Will set patient up for a sleep study Ordered: Office Visit Level 4 Est [id number] Orders: losartan-hydrochlorothiazide, 1 tabs, Oral, Daily, X 90 days, # 90 tabs, 3 Refill(s), Pharmacy: [facility] #[id number]
--- OUTSIDE RECORDS SUMMARY | 2016-06-12 13:59 | XMS REPORT | Referral Summary ---
Author Author [facility] [employer] [facility] Organization [facility] [place] Address Unknown Phone Unavailable Care Team Providers Care Control Panel Operator Crude Unit Name Role Phone Claude Hudson Primary Care Physician [phone] Encounter [facility] [id number] Date(s): 05/11/15 - 05/11/15 [facility] [place] [address] [place], [place] [address] Discharge Diagnosis: Essential hypertension Discharge Diagnosis: Fatigue Discharge Diagnosis: Snoring Discharge Disposition: 01-Home or Self Care Attending Physician: Tavares Fernandes MD Admitting Physician: Tavares Fernandes MD Referring Physician: Arsen Hudson MD Vital Signs Most recent to 1 oldest [Reference Range]: Peripheral Pulse 82 bpm Rate [60-100 bpm] (05/11/15 4:05 PM) Blood Pressure 118/74 mmHg [90-140/60-90 mmHg] (05/11/15 4:05 PM) SpO2 96 % (05/11/15 4:05 PM) Problem List Condition Effective Dates Status [...] days, # 90 tabs, 3 Refill(s), Pharmacy: [facility] #[id number] Start Date: 11/08/14 Stop Date: 11/03/15 Status: Ordered Results No data available for this section Immunizations Vaccine Date Refusal Reason influenza virus vaccine, live 12/07/12 influenza virus vaccine, live 12/05/10 pneumococcal 23-polyvalent vaccine 07/11/10 zoster vaccine live 11/10/12 Procedures No data available for this section Social History Social History Type Response Smoking Status Never smoker Assessment and Plan Extracted from: Title: Office Visit Note Author: Tavares Fernandes Date: 05/11/15 Assessment/Plan 1.Snoring 2.Essential hypertension 3.Fatigue Snoring, fatigue, Hx of HTN, witnessed apneas, Suspected Sleep Apnea. Patient has multiple risk factors for obstructive sleep apnea. Pre-test probability for sleep apnea is moderate. He is a good candidate for home sleep apnea testing or split night testing, patient opted for split night testing after hearing pros-cons. The testing process was explained to the patient in detail. Other testing options as well as therapeutic options were briefly discussed. We will see patient6 weeks after test to discuss results and management plan. Patient verbalized understanding and agrees with plan. Patient is advised to avoid driving and other potentially harmful activities if sleepy, drowsy or otherwise impaired. Countermeasures to sleepiness include naps before driving, pulling over to nap if driving and caffeine if patient is not in a potentially harmful setting.
--- OUTSIDE RECORDS SUMMARY | 2016-06-12 13:59 | XMS REPORT | Continuity of Care Document ---
Author Author [facility] Organization [facility] Address Unknown Phone Unavailable Allergies Active Description Code Type Severity Reaction Onset Reported/Identified Relationship to Patient Clinical Status Yes lisinopril NKMA Moderate cough 06/10/2013 Medications Problems Procedures Results Encounters ACCT No. Visit Date/Time Discharge Status Pt. Type Provider Facility Loc./Unit Complaint [id number] 03/22/2013 15:19:00 03/22/2013 23 :59:59 [facility] Outpatient [id number] 03/01/2013 13:08:00 03/01/2013 23 :59:59 CLS Outpatient [id number] 12/07/2012 15:09:00 12/07/2012 23 :59:59 CLS Outpatient
--- OUTSIDE RECORDS SUMMARY | 2016-06-12 13:59 | XMS REPORT | Referral Summary ---
Author Author [facility], [employer] Organization [facility] [place] Address Unknown Phone Unavailable Care Team Providers Care Director Of Litigation Name Role Phone Claude Hudson Primary Care Physician [phone] Encounter VC Date(s): 08/09/15 - 08/09/15 [facility] [place] [address] [place], [place] [address] Discharge Disposition: 01-Home or Self Care Attending Physician: Tavares Fernandes MD Admitting Physician: Tavares Fernandes MD Vital Signs No data available for this section Problem List Condition Effective Dates Status Health Status Informant Constipation Active (disorder)(Confirmed ) Essential Active hypertension (disorder)(Confirmed ) Fatigue(Confirmed) Active Hemorrhoids without Active complication (disorder)(Confirmed ) Hyperlipidemia(Confi Active rmed) hypertension(Confirm Resolved ed) Impotence of organic Active origin (disorder)(Confirmed ) Obesity(Confirmed) Active patient Moderate obstructive Active sleep apnea(Confirmed) [place] 07/2007 Active spotted fever(Confirmed) Rotator cuff Active [...] Refill(s), Pharmacy: [facility] #[id number] Start Date: 11/08/14 Stop Date: 11/03/15 Status: [...] smoker Assessment and Plan Extracted from: Title: CPAP SUPPLIES Author: Natalya Rojas [employer]HW[employer] COMMISSIONER Date: 08/09/15 [employer]:med with headgear / 30 day switch. He will bring the Airfit p10 back tomorrow.
--- OUTSIDE RECORDS SUMMARY | 2016-06-12 13:59 | XMS REPORT | Continuity of Care Document ---
Author Author Jose Martin Anderson MA Ambulatory Address Unknown Phone Unavailable Care Team Providers Care Forensic Examiner Name Role Phone Kwesi Pereshong ROGERS Unavailable Payers Payer name Insurance type Covered libertarian ID Authorization(s) Unknown Problems Condition Effective Dates (start - stop) Clinical Status Medication side effect - *Symptomatic Obesity - Improved Hypertension, Unspecified - *Chronic Other and unspecified hyperlipidemia - *Chronic Rotator cuff (capsule) sprain and strain - *Acute Hypertension, Unspecified - *Chronic Hypertension, Unspecified - Chronic Hypertension, Unspecified - *Chronic Other and unspecified hyperlipidemia - *Chronic Obesity - *Chronic Family history of coronary artery disease - *Chronic Constipation, unspecified - Chronic Hemorrhoids [...] Flu (split) (3 yrs or older) completed Tdap (Boostrix ) completed - Completed reason: previously given flu (split) (3 yrs or older) completed - Completed reason: previously given pneumo (2 yrs or older) (PPV23) completed - Completed reason: previously given Results Test Name Date and Time Measure Units Reference Range Abnormal Flag Comments Unknown Vital Signs Date / Time: Height Weight Pulse Rate Blood Pressure Temperature /15:15:00 67.00 in 221.12 lbs 88 /min 128/74 mm[Hg] 98.1 F Procedures Procedure Date Unknown Encounters Encounter Location Date Patient Visit [facility] Patient [facility] Patient [facility] Patient [facility] Patient [facility] Patient Visit [facility] Advance Directives Directive Effective Date Unknown
--- OUTSIDE RECORDS SUMMARY | 2016-06-12 13:59 | XMS REPORT | Referral Summary ---
Author Author [facility] Organization [facility] Address Unknown Phone Unavailable Care Team Providers Care Elevator Constructor Supervisor Name Role Phone Claude Hudson Primary Care Physician [phone] Encounter VC Date(s): 02/08/16 - 02/08/16 [facility], [address] [place] [address] Discharge Diagnosis: Moderate obstructive sleep apnea Discharge Diagnosis: Essential hypertension Discharge Diagnosis: Hyperlipidemia Discharge Disposition: 01-Home or Self Care Attending Physician: Arsen Hudson MD Admitting Physician: Arsen Hudson MD Vital Signs Most recent to 1 oldest [Reference Range]: Peripheral Pulse 87 bpm Rate [60-100 bpm] (02/08/16 10:37 AM) Blood Pressure 126/84 mmHg [90-140/60-90 mmHg] (02/08/16 10:37 AM) SpO2 93 % (02/08/16 10:37 AM) Problem List Condition Effective Dates Status Health Status Informant Constipation Active (disorder)(Confirmed ) Essential Active hypertension (disorder)(Confirmed ) Fatigue(Confirmed) Active Hemorrhoids without Active complication (disorder)(Confirmed ) Hyperlipidemia(Confi Active rmed) hypertension(Confirm Resolved ed) Impotence of organic Active origin (disorder)(Confirmed ) Obesity(Confirmed) Active patient Moderate obstructive Active sleep apnea(Confirmed) [place] 07/2007 Active spotted fever(Confirmed) Rotator cuff Active tendinitis(Confirmed ) Snoring(Confirmed) Active tonsillectomy(Confir Resolved med) Chicken Active pox(Confirmed) Allergies, Adverse Reactions, Alerts Substance Reaction Severity Status lisinopril cough Moderate Active Medications Aleve 220 mg, Oral, as needed for arthritis, 0 Refill(s) Start Date: 08/08/14 Status: Ordered losartan-hydrochlorothiazide 100 mg-25 mg oral tablet 1 tabs, Oral, Daily, # 90 tabs, 3 Refill(s), [facility] #[id number] Start Date: 02/08/16 Status: Ordered Results No data available for this section Immunizations Given and Recorded Vaccine Date Status Refusal Reason tetanus/diphth/pertuss (Tdap) adult/adol 10/03/08 Recorded influenza virus vaccine, live 12/07/12 Given influenza virus vaccine, live 12/05/10 Given pneumococcal 23-polyvalent vaccine 07/11/10 Recorded pneumococcal 23-polyvalent vaccine 10/03/08 Recorded zoster vaccine live 11/10/12 Recorded Procedures Procedure Date Related Diagnosis Body Site Colonoscopy1 11/07/08 Tonsillectomy 1with mild sigmoid diverticulosis. Plan repeat colonoscopy in 10 years (2018) Social History Social History Type Response Smoking Status Never smoker Assessment and Plan Extracted from: Title: Ambulatory Patient Education Author: Arsen Hudson MD Date: ENT CPAP and BIPAP Information CPAP and BIPAP are methods of helping you breathe with the use of air pressure. CPAP stands for "continuous positive airway pressure." BIPAP stands for "bi- level positive airway pressure." In both methods, air is blown into your air passages to help keep you breathing well. With CPAP, the amount of pressure stays the same while you breathe in and out. CPAP is most commonly used for obstructive sleep apnea. For obstructive sleep apnea, CPAP works by holding your airways open so that they do not collapse when your muscles relax during sleep. BIPAP is similar to CPAP except the amount of pressure is increased when you inhale. This helps you take larger breaths. Your health care provider will recommend whether CPAP or BIPAP would be more helpful for you. WHY ARE CPAP AND BIPAP TREATMENTS USED? CPAP or BIPAP can be helpful if you have: Sleep apnea. Chronic obstructive pulmonary disease (COPD). Diseases that weaken the muscles of the chest, including muscular dystrophy or neurological diseases such as amyotrophic lateral sclerosis (ALS). Other problems that cause breathing to be weak, abnormal, or difficult. HOW IS CPAP OR BIPAP ADMINISTERED? Both CPAP and BIPAP are provided by a small machine with a flexible plastic tube that attaches to a plastic mask. The mask fits on your face, and air is blown into your air passages through your nose or mouth. The amount of pressure that is used to blow the air into your air passages can be set on the machine. Your health care provider will determine the pressure setting that should be used based on your individual needs. WHEN SHOULD CPAP OR BIPAP BE USED? In most cases, the mask is worn only when sleeping. Generally, you will need to wear the mask throughout the night and during the daytime if you take a nap. In a few cases involving certain medical conditions, people also need to wear the mask at other times when they are awake. Follow your health care provider's instructions for when to use the machine. USING THE MASK Because the mask needs to be snug, some people feel a trapped or closed- in feeling (claustrophobic) when first using the mask. You may need to get used to the mask gradually. To do this, you can first hold the mask loosely over your nose or mouth. Gradually apply the mask more snugly. You can also gradually increase the amount of time that you use the mask. Masks are available in various types and sizes. Some fit over your mouth and nose, and some fit over just your nose. If your mask does not fit well, talk to your health care provider about getting a different one. If you are using a nasal mask and you tend to breathe through your mouth , a chin strap may be applied to help keep your mouth closed. The CPAP and BIPAP machines have alarms that may sound if the mask comes off or develops a leak. If you have trouble with the mask, it is very important that you talk to your health care provider about finding a way to make the mask easier to tolerate. Do not stop using the mask. This could have a negative impact on your health. TIPS FOR USING THE MACHINE Place your CPAP or BIPAP machine on a secure table or stand near an electrical outlet. Know where the on-off switch is located on the machine. Follow your health care provider's instructions for how to set the pressure on your machine and when you should use it. Do not eat or drink while the CPAP or BIPAP machine is on. Food or fluids could get pushed into your lungs by the pressure of the CPAP or BIPAP. Do not smoke. Tobacco smoke residue can damage the machine. For home use, CPAP and BIPAP machines can be rented or purchased through home health care companies. Many different brands of machines are available. Renting a machine before purchasing may help you find out which particular machine works well for you. SEEK IMMEDIATE MEDICAL CARE IF: You have redness or open areas around your nose or mouth where the mask fits. You have trouble operating the CPAP or BIPAP machine. You cannot tolerate wearing the CPAP or BIPAP mask. This information is not intended to replace advice given to you by your health care provider. Make sure you discuss any questions you have with your health care provider. Document Released: 10/25/2004 Document Revised: 02/17/2015 Document Reviewed: [employer] Interactive Patient Education 2016 [employer]. Preventive Medicine Managing Your High Blood Pressure Blood pressure is a measurement of how forceful your blood is pressing against the christian of the arteries. Arteries are muscular tubes within the circulatory system. Blood pressure does not stay the same. Blood pressure rises when you are active, excited, or nervous; and it lowers during sleep and relaxation. If the numbers measuring your blood pressure stay above normal most of the time, you are at risk for health problems. High blood pressure (hypertension) is a long-term (chronic) condition in which blood pressure is elevated. A blood pressure reading is recorded as two numbers, such as 120 over 80 (or 120 /80). The first, higher number is called the systolic pressure. It is a measure of the pressure in your arteries as the heart beats. The second, lower number is called the diastolic pressure. It is a measure of the pressure in your arteries as the heart relaxes between beats. Keeping your blood pressure in a normal range is important to your overall health and prevention of health problems, such as heart disease and stroke. When your blood pressure is uncontrolled, your heart has to work harder than normal. High blood pressure is a very common condition in adults because blood pressure tends to rise with age. Men and women are equally likely to have hypertension but at different times in life. Before age 45, men are more likely to have hypertension. After 65 years of age, women are more likely to have it. Hypertension is especially common in Americans. This condition often has no signs or symptoms. The cause of the condition is usually not known. Your caregiver can help you come up with a plan to keep your blood pressure in a normal, healthy range. BLOOD PRESSURE STAGES Blood pressure is classified into four stages: normal, prehypertension, stage 1 , and stage 2. Your blood pressure reading will be used to determine what type of treatment, if any, is necessary. Appropriate treatment options are tied to these four stages: Normal Systolic pressure (mm Hg): below 120. Diastolic pressure (mm Hg): below 80. Prehypertension Systolic pressure (mm Hg): 120 to 139. Diastolic pressure (mm Hg): 80 to 89. Stage1 Systolic pressure (mm Hg): 140 to 159. Diastolic pressure (mm Hg): 90 to 99. Stage2 Systolic pressure (mm Hg): 160 or above. Diastolic pressure (mm Hg): 100 or above. RISKS RELATED TO HIGH BLOOD PRESSURE Managing your blood pressure is an important responsibility. Uncontrolled high blood pressure can lead to: A heart attack. A stroke. A weakened blood vessel (aneurysm). Heart failure. Kidney damage. Eye damage. Metabolic syndrome. Memory and concentration problems. HOW TO MANAGE YOUR BLOOD PRESSURE Blood pressure can be managed effectively with lifestyle changes and medicines ( if needed). Your caregiver will help you come up with a plan to bring your blood pressure within a normal range. Your plan should include the following: Education Read all information provided by your caregivers about how to control blood pressure. Educate yourself on the latest guidelines and treatment recommendations. New research is always being done to further define the risks and treatments for high blood pressure. Lifestylechanges Control your weight. Avoid smoking. Stay physically active. Reduce the amount of salt in your diet. Reduce stress. Control any chronic conditions, such as high cholesterol or diabetes. Reduce your alcohol intake. Medicines Several medicines (antihypertensive medicines) are available, if needed, to bring blood pressure within a normal range. Communication Review all the medicines you take with your caregiver because there may be side effects or interactions. Talk with your caregiver about your diet, exercise habits, and other lifestyle factors that may be contributing to high blood pressure. See your caregiver regularly. Your caregiver can help you create and adjust your plan for managing high blood pressure. RECOMMENDATIONS FOR TREATMENT AND FOLLOW-UP The following recommendations are based on current guidelines for managing high blood pressure in non adults. Use these recommendations to identify the proper follow-up period or treatment option based on your blood pressure reading. You can discuss these options with your caregiver. Systolic pressure of 120 to 139 or diastolic pressure of 80 to 89: Follow up with your caregiver as directed. Systolic pressure of 140 to 160 or diastolic pressure of 90 to 100: Follow up with your caregiver within 2 months. Systolic pressure above 160 or diastolic pressure above 100: Follow up with your caregiver within 1 month. Systolic pressure above 180 or diastolic pressure above 110: Consider antihypertensive therapy; follow up with your caregiver within 1 week. Systolic pressure above 200 or diastolic pressure above 120: Begin antihypertensive therapy; follow up with your caregiver within 1 week. This information is not intended to replace advice given to you by your health care provider. Make sure you discuss any questions you have with your health care provider. Document Released: 10/21/2012 Document Reviewed: 10/21/2012 [employer] Interactive Patient Education 2016 [employer] No follow up information was provided. Extracted from: Title: Office Visit Note Author: Arsen Hudson MD Date: 02/08/16 Assessment/Plan 1.Essential hypertension Continue with the current medication. Ordered: Periodic Comp Preventive Med 40 to 64 years Est 35351 2.Hyperlipidemia Will fasting lab. Ordered: Periodic Comp Preventive Med 40 to 64 years Est 10239 3.Moderate obstructive sleep apnea Suggest to follow up with sleep medicine office. Ordered: Periodic Comp Preventive Med 40 to 64 years Est 11561 Follow up in 6 months.
--- OUTSIDE RECORDS SUMMARY | 2016-06-12 13:59 | XMS REPORT | Referral Summary ---
Author Author [facility] [employer] Organization [facility], [place] Address Unknown Phone Unavailable Care Team Providers Care Continuous Miner Name Role Phone Claude Hudson Primary Care Physician [phone] Encounter VC Date(s): 08/07/15 - 08/07/15 [facility] [place] [address] [place], [place] [address] Discharge Disposition: 01-Home or Self Care Attending Physician: Tavares Fernandes MD Vital Signs No data available for this section Problem List Condition Effective Dates Status Health Status Informant Constipation Active (disorder)(Confirmed ) Essential Active hypertension (disorder)(Confirmed ) Fatigue(Confirmed) Active Hemorrhoids without Active complication (disorder)(Confirmed ) Hyperlipidemia(Confi Active rmed) hypertension(Confirm Resolved ed) Impotence of organic Active origin (disorder)(Confirmed ) Obesity(Confirmed) Active patient Moderate obstructive Active sleep apnea(Confirmed) [place] 07/2007 Active spotted fever(Confirmed) Rotator cuff Active [...] days, # 90 tabs, 3 Refill(s), Pharmacy: [facility] #[id number] Start Date: 11/08/14 Stop Date: 11/03/15 Status: [...] Smoking Status Never smoker Assessment and Plan No data available for this section
--- OUTSIDE RECORDS SUMMARY | 2016-06-12 13:59 | XMS REPORT | Referral Summary ---
Author Author [facility] [place] Organization [facility] [place] Address Unknown Phone Unavailable Care Team Providers Care Automatic Vulcanizing Lead Operator Name Role Phone Claude Hudson Primary Care Physician [phone] Encounter VC Date(s): 05/19/15 - 05/19/15 [facility] [place] [address] [place], [place] [address] Discharge Disposition: 01-Home or [...] days, # 90 tabs, 3 Refill(s), Pharmacy: [facility] #[id number] Start Date: 11/08/14 Stop Date: 11/03/15 Status: [...]
[2016-06-12] MEDS ORDERED: LIDOCAINE 1% (10mg/ml) 30ml SDV SQ ONE (14:00)
--- OUTSIDE RECORDS SUMMARY | 2016-06-12 14:03 | XMS REPORT | Continuity of Care Document ---
Author Author [facility] Organization [facility] Address Unknown Phone Unavailable Allergies Active Description Code Type Severity Reaction Onset Reported/Identified Relationship to Patient Clinical Status Yes lisinopril NKMA Moderate cough 06/10/2013 Medications Problems Procedures Results Encounters ACCT No. Visit Date/Time Discharge Status Pt. Type Provider Facility Loc./Unit Complaint [id number] 03/22/2013 15:19:00 03/22/2013 23 :59:59 [facility] Outpatient [id number] 03/01/2013 13:08:00 03/01/2013 23 :59:59 CLS Outpatient [id number] 12/07/2012 15:09:00 12/07/2012 23 :59:59 CLS Outpatient
--- OUTSIDE RECORDS SUMMARY | 2016-06-12 14:03 | XMS REPORT | Continuity of Care Document ---
Author Author [facility] Organization [facility] Address Unknown Phone Unavailable Care Team Providers Care Orchard Sprayer Name Role Phone JAMEY CHUA MD Primary Care Physician [phone] Insurance Providers Payer Name Policy Number Subscriber Name Relationship [facility] [id number] Jesus Julien 20 Self Problems Medical Problems [...] F (96.8 - 99.1) Temperature (Calculated Celsius) 36.91715 degrees C (36.0 - 37.3) Pulse Rate [...] 0.8-1.5 D-Dimer July 20, 2007 1:04pm > 41961 NG/ML H [phone] <500 NG/ML FIBRIN DEGRADATION [...] specimen been collected /obtained? Y Urine Specific [place] July 20, 2007 1:52pm 1.010 - Has [...] Encounters Encounter Location Date/Time Registered Emergency Room [facility] 10/03/13 1:00pm Recent Diagnosis
--- NOTE | 2016-06-12 14:10 | ERPDOC ---
Departure Disposition Decision Date: June 12, 2016 Disposition Decision Time: 15:35 Disposition: 01 DISCHARGED HOME, SELF-CARE Impression Impression Impression: Primary Impression: Laceration Additional Impression: Avulsion fracture of distal phalanx of finger Encounter type: initial encounter Fracture type: open Qualified Codes: S62.639B - Displaced fracture of distal phalanx of unspecified finger, initial encounter for open fracture Condition: Stable Seen By: Mid-level only Referrals: STACY WILEY MD 2 Days Patient Instructions: Avulsion Fracture (ED), Finger Laceration (ED) Problems/Meds/Labs Reviewed?: Yes Medications reviewed and manag: Yes Additional Instructions: KEEP SPLINT IN PLACE ; CHANGE DRESSING DAILY AND INSPECT WOUND CLOSELY FOR SIGNS OF INFECTION OR INADEQUATE CIRCULATION . FINGER SHOULD REMAIN WARM AND PINK. DARK BLUE OR PURPLE COLORATION OR COOLNESS MAY INDICATE INADEQUATE CIRCULATION AND WOULD MEAN OU NEED TO GO TO YOUR DOCTOR. RECOMMEND FOLLOW ON FRIDAY TO CHECK WOUND HEALING. SUTURES OUT IN 7-10 DAYS . TAKE ANTIBIOTICS PRESCRIBED. TAKE MOTRIN 800 MG EVERY 8 HOURS AND SUPPLEMENT WITH NORCO FOR SEVERE PAIN KEEPING FINGER ELEVATED MUCH POSSIBLE WILL HELP WITH PAIN AND SWELLING. Follow up care ordered?: Yes Mental Status: Alert, Oriented Scripts Hydrocodone/Acetaminophen (Dalton 5-325 Tablet) 1 Each Tablet 1-2 TAB PO Q4-6H, #15 TAB Prov: NATALIIA MCCLAIN APRN 06/12/16 Cephalexin (Cephalexin) 500 Mg Capsule 1 CAP PO QID for 10 Days, CAP Prov: NATALIIA MCCLAIN APRN 06/12/16 HPI General Chief Complaint: Upper Extremity Injury Stated Complaint: FALL/HANGING FINGER Time Seen by Provider: 13:55 Source: patient Exam Limitations: no limitations HPI Hand/Forearm Initial Comments Patient presents with injury to his left ring finger on the husain aspect. Patient was using a vaccuum in the garage , was standing on a platform above three steps; states fell back and kept ahold of the vaccuum as he fell and sustained a laceration to his left ring finger. . Soft tissue injury to the distal portion of the left ring finger distal to the PIP joint. No tissue loss. Mimimal bleeding. Full tendon function maintained. Occurred At: home Onset: Rapid Duration: 1/2 hour Severity: moderate, severe Location: left: 4th finger 1 - tissue flap Method of Injury: other (pinched in hand cementer ) Modifying Factors: IMPROVES WITH: immobilization, pain medication, rest, WORSE WITH: jarring, movement Associated Symptoms: swelling Allergies: Coded Allergies: No Known Drug Allergies (Verified Allergy, Unknown, 06/12/16) Past History Past Medical History Metabolic: hypertension GI: GERD, gallbladder disease Surgical History Denies Surgeries Family History Family PMH: FOUND: [place], diabetes Vaccines Hx Influenza Vaccination: Yes (2012) Hx Pneumococcal Vaccination: Yes (2006) Hx Tetanus Diptheria: Yes (3 YRS) Hx Tetanus, Diptheria, Pertuss: Yes (06/28/11) Social History Tobacco Usage: none Alcohol Usage: none Drug Usage: none IV Drug Use: No Sexuality: female partner Residence: home Review of Systems Constitutional Constitutional: see HPI, DENIES: chills, dizziness, fever, weakness Eyes General: DENIES: burning, itching Lids/Accessories: DENIES: erythema, swelling ENMT Ears: DENIES: erythema, pain Hearing: DENIES: tinnitus Balance: DENIES: vertigo Sinuses: DENIES: congestion, pain, rhinorrhea Mouth/Throat: DENIES: scratchy throat, sore throat Cardiovascular Cardiac: DENIES: chest pain, murmur Rhythm/Rate: DENIES: PSVT, tachycardia Pulmonary Respiratory: DENIES: cough, pleuritic chest pain GI Upper Abdomen: DENIES: nausea, pain Lower Abdomen: DENIES: diarrhea, pain General: DENIES: dysuria, urgency Integumentary Skin: other (laceration ), see HPI Neurological General: see HPI, DENIES: numbness, seizures, weakness Hematologic/Lymphatic Hematologic/Lymphatic: DENIES: anemia, easy bruising All other Systems All Other Systems: Reviewed and Negative Exam General General Nourishment: well nourished, well developed, appears stated age, adult Vital Signs: RN Vital Signs have been reviewed: Yes Height (Feet): 5 Height (Inches): 8 Fastrak Hand/Forearm Hand/Forearm : Upper Extremity: Left Comments left ring finger soft tissue injury approx 2 cm in length and 1 cm width ; tissue flap appears attached and viable Eyes (brief) Eyes Brief: found: EOMI, PERRL Respiratory (brief) Respiratory Brief: FOUND: clear all espinoza, equal bilaterally, NOT FOUND: rales , wheezes Cardiovascular (brief) Cardiac Brief: FOUND: regular rate, regular rhythm, NOT FOUND: pedal edema Cardiovascular Auscultation: FOUND: S1, S2 Murmur: FOUND: no murmur Abdomen (brief) Abdominal Brief: FOUND: bowel normo active x4, soft, NOT FOUND: tender Integumentary (brief) Integumentary Brief: FOUND: dry, pink, warm Neurologic (brief) Neurological Brief: FOUND: CN w/o gross def to obs, motor-no gross deficits Neurologic RN Documented GCS Eye Opening: Verbal: Motor: Total: Differential Diagnoses Considering: Compartment Syndrome, Dislocation, Fingernail Avulsion, Fracture, Laceration, Flexor Tendon Injury, Vascular Compromise Procedures Laceration/Wound Repair Wound/Laceration Repair : Wound Location: upper extremity (left ring finger ) Wound Length (cm): 4 Depth, Shape: subcutaneous Explored: clean Irrigated: saline Prep: chlorasept Anesthesia: 1% Lidocaine Volume Anesthetic (ccs): 8 Type of Block: digital Wound Debrided: minimal Wound Revision?: No Repaired With: Sutures Suture Size: 4:0 Suture Type: prolene Number of Sutures: 9 Layer Closure?: No Extensor Tendon Repair?: No Sterile Dressing Applied?: Yes Splint Applied?: Yes Progress edges well approximated and suture closure. Patient tolerated well . Full tendon function maintained. Progress Results/Orders Orders Procedure Category Date Status Time Lidocaine 1% PHA 06/12/16 Complete (Xylocaine 1%) 14:00 Tetanus,Diphth,A PHA 06/12/16 Complete Pertus (Tdap) (Adacel) 14:15 Fingers Left 2 View RAD 06/12/16 Resulted MIN Cephalexin Capsule PHA 06/12/16 Complete (Keflex) 15:45 Medications Current ED Medications Lidocaine HCl (Xylocaine 1%) 100 mg O ONCE SQ Last administered on 06/12/16 14 :57; Start 06/12/16 at 14:00; Stop 06/12/16 at 14:01; Status DC Diphtheria/ Tetanus/Acell Pertussis (Adacel) 0.5 ml O ONCE IM Last administered on 06/12/16 14:58; Start 06/12/16 at 14:15; Stop 06/12/16 at 14:16; Status DC Cephalexin HCl (Keflex) 500 mg O ONCE PO Last administered on 06/12/16 15:54; Start 06/12/16 at 15:45; Stop 06/12/16 at 15:57; Status DC NATALIIA MCCLAIN APRN June 12, 2016 14:10
[2016-06-12] MEDS ORDERED: TETANUS,DIPHTH,a PERTUS (Tdap) 0.5 ML VIAL IM ONE (14:15)
--- NOTE | 2016-06-12 14:41 | DI ---
Indication: ITS.REASON: laceration left ring finger PROCEDURE: FINGERS LEFT 2 VIEW MIN: Encounter: Initial Comparison: None Findings: There is an open fracture of the tuft of the ring finger distal phalanx with associated soft tissue laceration and irregularity. No additional acute fracture or dislocation seen. Mild osteoarthritis. Impression: Open posttraumatic fracture of the ring finger distal phalanx tuft. .
--- NOTE | 2016-06-12 14:50 | NUR ---
PROVIDER Christina MCCLAIN COPYRIGHT MANAGER IN TO SEE PATIENT.
--- NOTE | 2016-06-12 15:22 | NUR ---
PROVIDER Christina MCCLAIN MINE SAFETY ENGINEER IN TO SUTURE UP AVULSION INJURY.
[2016-06-12] MEDS ORDERED: CEPH500C2 PO (15:42)
[2016-06-12] MEDS ORDERED: HYDR-4246 PO (15:42)
[2016-06-12] MEDS ORDERED: CEPHALEXIN 500 MG CAPSULE PO ONE (15:45)
[2016-06-12 15:55] VITALS: BP 102/67; PULSE 78; RESP 18; TEMP 98.1; O2SAT 95
== END 2016-06-12 15:55 | disposition home or self-care (01) ==
LOC: ED 13:53
DX: S62.635B Displaced fracture of distal phalanx of left ring finger, initial encounter for open fracture (principal); W17.89XA Other fall from one level to another, initial encounter; Y93.E3 Activity, vacuuming; Y92.015 Private garage of single-family (private) house as the place of occurrence of the external cause; Y99.8 Other external cause status
CPT/HCPCS: 90715